=== PATIENT | female | born 1995 | race American Indian/Alaskan Native ===

== ENCOUNTER 2017-03-29 01:51 | Emergency (ER) | payer MEDICAID, OTHER ==
[2017-03-29] MEDS ORDERED: Ondansetron 4 MG Tab.DIS PO ONE (01:57)
[2017-03-29] MEDS ORDERED: Ondansetron 4 MG/2 ML SDV IVPUSH ONE (02:05)
[2017-03-29] MEDS ORDERED: Ondansetron 4 MG/2 ML SDV ONE (02:08)
[2017-03-29] MEDS ORDERED: Sodium Chloride 0.9% 1,000 ML IV SCH ×2 (02:15→03:45)
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
--- NOTE | 2017-03-31 09:30 | CR ---
Knee 3V Lt FINDINGS:There is normal alignment. There is no fracture. There is no evidence of joint effusion. Th e soft tissues are unremarkable. There is mild degenerative joint space loss. IMPRESSION: Negative exam of the knee.
== END 2017-03-29 05:01 ==
LOC: JP.ED 01:51
DX: F10.920 Alcohol use, unspecified with intoxication, uncomplicated (principal); S80.02XA Contusion of left knee, initial encounter; S40.212A Abrasion of left shoulder, initial encounter; F12.10 Cannabis abuse, uncomplicated; R00.0 Tachycardia, unspecified; Y90.7 Blood alcohol level of 200-239 mg/100 ml; X58.XXXA Exposure to other specified factors, initial encounter
CPT/HCPCS: 36415; 73562; 80048; 80305; 85025; 96361; 96374; 99283; G0480; J2405; J7040; 93005; 93010; 99284